=== PATIENT | female | born 1965 | race African-American/Black ===

== ENCOUNTER 2017-07-12 07:51 | Emergency (ER) | payer BC ==
[~2017-07-12] VITALS: Ht 160 cm; Wt 90.7 kg
[2017-07-12] MEDS ORDERED: AMLODIPINE 5 MG TABLET PO ONE (08:00)
[2017-07-12] MEDS ORDERED: ATENOLOL 25 MG TABLET PO ONE (08:00)
[2017-07-12] MEDS ORDERED: ATENOLOL 25 MG TABLET ONE (08:03)
[2017-07-12] MEDS ORDERED: AMLODIPINE 5 MG TABLET ONE (08:04)
[2017-07-12 08:05] VITALS: BP 177/117
--- NOTE | 2017-07-12 08:07 | NUR ---
Patient discharged to home in stable conditon. Written and verbal after care instructions given. Patient verbalizes understanding of instructions.pt walks in steady gait. deneis any headache, dizziness or nausea. Addendum: 07/12/17 at 0809 by CINTIA pt an employee of [employer], was told to come bck and recheck the bp
== END 2017-07-12 08:10 | disposition home or self-care (01) ==
LOC: ER 07:51
DX: I10 Essential (primary) hypertension (principal)
CPT/HCPCS: A4663